=== PATIENT | female | born 1945 | race Caucasian/White ===

== ENCOUNTER 2019-04-08 15:42 | Emergency (ER) | payer MEDICARE ==
--- NOTE | 2019-04-08 16:23 | ER Document Report ---
ED Medical Screen (RME) - General Chief Complaint: Abdominal Pain Stated Complaint: FLANK PAIN ON BOTH SIDES Time Seen by Provider: 04/08/19 16:17 Mode of Arrival: Ambulatory Information source: Patient Notes: 73-year-old female presented to ED for bilateral lower abdominal pain for 10 days to 2 weeks. She states she went to the urgent care today and they told her to come over to the emergency room. She states the pain is been much worse over the last couple days. She states she was having diarrhea but the last couple days is been normal stools she denies any nausea vomiting or fevers. She states she had a total hysterectomy and 1997 and she states her pain at times is a 5 but right now is about a 2 or 3. She does have hyperactive bowel sounds tenderness to bilateral lower abdomen worse on the left. 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 She is at a clinical trial at [facility] and gets treatment every month last treatment was March 23. She states she is being maintained on these clinical trials. Sezary syndrome lymphoma. She states she drinks several times a week a glass of wine and smokes occasionally. I have greeted and performed a rapid initial assessment of this patient. A comprehensive ED assessment and evaluation of the patient, analysis of test results and completion of medical decision making process will be conducted by an additional ED providers. Physical Exam - Vital signs Vitals: Temp Pulse Resp BP Pulse Ox 98.2 F 74 20 152/64 H 99 04/08/19 15:46 04/08/19 15:46 04/08/19 15:46 04/08/19 15:46 04/08/19 15:46 Course - Vital Signs Vital signs: Temp Pulse Resp BP Pulse Ox 98.2 F 74 20 152/64 H 99 04/08/19 15:46 04/08/19 15:46 04/08/19 15:46 04/08/19 15:46 04/08/19 15:46
[2019-04-08 17:33] LABS: ABSOLUTE BASOPHILS # (AUTO) 0.1 10^3/uL (0.0-0.2); ABSOLUTE EOSINOPHILS # (AUTO) 0.3 10^3/uL (0.0-0.6); ABSOLUTE MONOCYTES (AUTO) 1.6 10^3/uL (0.1-1.4); ABSOLUTE NEUT (AUTO) 9.3 10^3/uL (1.7-8.2); BASOPHILS % (AUTO) 0.5 % (0-2); HEMOGLOBIN 13.5 g/dL (12.0-15.5); LYMPHOCYTES % (AUTO) 15.1 % (13-45); MEAN CORPUSCULAR HEMOGLOBIN 32.7 pg (27.0-33.4); MEAN CORPUSCULAR HGB CONC 33.7 g/dL (32.0-36.0); MEAN CORPUSCULAR VOLUME 97 fl (80-97); PLATELET COUNT 267 10^3/uL (150-450); RED BLOOD COUNT 4.12 10^6/uL (3.72-5.28); RED CELL DISTRIBUTION WIDTH 12.9 % (11.5-14.0); SEGMENTED NEUTROPHILS % (AUTO) 70.4 % (42-78); TOTAL CELLS COUNTED % (AUTO) 100 %; WHITE BLOOD COUNT 13.2 10^3/uL (4.0-10.5)
[2019-04-08 17:42] LABS: APPEARANCE,URINE CLEAR; BILIRUBIN,URINE NEGATIVE (NEGATIVE); COLOR,URINE YELLOW; GLUCOSE, URINE NEGATIVE (NEGATIVE); KETONES,URINE NEGATIVE (NEGATIVE); PROTEIN,URINE NEGATIVE (NEGATIVE); URINE SPECIFIC GRAVITY 1.011; UROBILINOGEN,URINE NEGATIVE mg/dL (<2.0)
[2019-04-08 18:13] LABS: ALBUMIN 4.1 g/dL (3.5-5.0); ALKALINE PHOSPHATASE 53 U/L (38-126); ANION GAP 9 (5-19); ASPARTATE AMINO TRANSFERASE 24 U/L (14-36); BILIRUBIN,DIRECT 0.1 mg/dL (0.0-0.4); BILIRUBIN,TOTAL 0.6 mg/dL (0.2-1.3); BLOOD UREA NITROGEN 12 mg/dL (7-20); CALCIUM 9.4 mg/dL (8.4-10.2); CARBON DIOXIDE 25 mmol/L (22-30); CHLORIDE 103 mmol/L (98-107); GLUCOSE 87 mg/dL (75-110); POTASSIUM 4.5 mmol/L (3.6-5.0)
[2019-04-08] MEDS ORDERED: DICYCLOMINE HCL INJ 20 MG/2 ML AMPULE IM ONE (20:31)
--- NOTE | 2019-04-08 20:37 | ER Document Report ---
ED General - General Chief Complaint: Abdominal Pain Stated Complaint: FLANK PAIN ON BOTH SIDES Time Seen by Provider: 04/08/19 16:17 Primary Care Provider: ABI REAGAN [Primary Care Provider] - Follow up as needed Mode of Arrival: Ambulatory TRAVEL OUTSIDE OF THE [place] IN LAST 30 DAYS: No - HPI Notes: Patient is a 73-year-old female presents emergency department for evaluation of intermittent abdominal pain. Pain is been present intermittently for the last 8 to 10 days. She states to believe it is precipitated by food. Pain lasts anywhere from 30 seconds to a few minutes. She has not found anything that makes it better. She denies any associated fevers or chills. No nausea or vomiting. Her appetite is normal, but she states she has not been eating as she fears that it will worsen her pain. She denies any associated urinary symptoms. - Related Data Allergies/Adverse Reactions: erythromycin base Adverse Reaction (Verified 04/08/19 16:20) Home Medications: Losartan, gemfibrozil, Synthroid, Xanax, Lexapro, Pristiq Past Medical History - General Information source: Patient - Social History Smoking Status: Current Some Day Smoker Chew tobacco use (# tins/day): No Frequency of alcohol use: Social Drug Abuse: None Family History: Reviewed & Not Pertinent Patient has suicidal ideation: No Patient has homicidal ideation: No - Past Medical History Cardiac Medical History: Reports: Hx Hypercholesterolemia, Hx Hypertension Endocrine Medical History: Reports: Hx Hypothyroidism Malignancy Medical History: Reports: Hx Lymphoma Review of Systems - Review of Systems Constitutional: No symptoms reported EENT: No symptoms reported Cardiovascular: No symptoms reported Respiratory: No symptoms reported Gastrointestinal: See HPI Genitourinary: No symptoms reported Female Genitourinary: No symptoms reported Musculoskeletal: No symptoms reported Skin: No symptoms reported Neurological/Psychological: No symptoms reported Physical Exam - Vital signs Vitals: Temp Pulse Resp BP Pulse Ox 98.2 F 74 20 152/64 H 99 04/08/19 15:46 04/08/19 15:46 04/08/19 15:46 04/08/19 15:46 04/08/19 15:46 - Notes Notes: Vital signs reviewed, please refer to chart. Head is normocephalic, atraumatic. Pupils equal round, reactive to light. Neck is supple without meningismus. Heart is regular rate and rhythm. Lungs are clear to auscultation bilaterally. Abdomen is soft, moderately tender in the bilateral lower quadrants without rebound or guarding, normoactive bowel sounds throughout. Extremities without cyanosis, clubbing. Posterior calves are nontender. Peripheral pulses are equal. Skin is warm and dry. Patient is awake, alert, neurological exam is nonfocal. Course - Re-evaluation Re-evalutation: 04/08/19 21:47 Patient presents emergency department for evaluation of lower quadrant abdominal pain. She is been having normal bowel movements. She has no fevers or chills. She does have mild leukocytosis. Given the duration of her pain, I was inclined to CT scan this patient. CT scan found what appears to be likely sigmoid div erticulitis. Reexamination of the abdomen revealed tenderness but again it was nonsurgical. Patient was given Cipro and Flagyl. I will send her home with a small amount of Vicodin, as well as prescriptions for Cipro, Flagyl, Bentyl. She is here from out of town. She is told she needs to follow-up with her primary care provider. I also explained her the risk of perforation and progressive infection, told her that symptoms should prompt her to return. Also states she should not drink alcohol while taking the Flagyl. She voiced understanding to this and was comfortable discharge. - Vital Signs Vital signs: Temp Pulse Resp BP Pulse Ox 98.5 F 68 16 141/69 H 96 04/08/19 20:57 04/08/19 20:57 04/08/19 20:57 04/08/19 20:57 04/08/19 20:57 - Laboratory Result Diagrams: 04/08/19 17:24 04/08/19 17:24 Laboratory results interpreted by me: 04/08/19 04/08/19 17:00 17:24 WBC 13.2 H Absolute Neuts (auto) 9.3 H Absolute Monos (auto) 1.6 H Leukocyte Esterase Rfl SMALL H - Diagnostic Test Radiology reviewed: Reports reviewed Radiology results interpreted by me: 04/08/19 21:48 Abdomen/Pelvis CT 04/08/19 20:31 IMPRESSION: Findings most consistent with acute uncomplicated sigmoid diverticulitis Discharge - Discharge Clinical Impression: Sigmoid diverticulitis Condition: Stable Disposition: HOME, SELF-CARE Instructions: Diverticulitis ([facility]), Ciprofloxacin ([facility]), Low Residue Diet ([facility]), Metronidazole ([facility]) Additional Instructions: Take all of the antibiotics as prescribed, starting tomorrow. Use [place] as needed for severe pain, watch for dizziness, drowsiness, constipation with this medication. Take Bentyl as needed for moderate pain. Please avoid alcohol as discussed while taking the Flagyl. Low residue diet, please see attached paperwork for further information. Return to the ED with worsening or new concerning symptoms of any sort, including but not limited to fevers, vomiting, increased pain. Otherwise, follow-up with your primary care provider next week for recheck. Referrals: LOCALMD,NO [Primary Care Provider] - Follow up as needed
--- NOTE | 2019-04-08 21:23 | RADIOLOGY REPORT (SQ) ---
EXAM DESCRIPTION: CT ABDOMEN PELVIS WITHOUT IV CONTRAST COMPLETED DATE/TME: 04/08/2019 20:31 CLINICAL HISTORY: 73 years Female Lower abdominal pain and tenderness COMPARISON: None. TECHNIQUE: Contiguous axial images obtained through the abdomen and pelvis without IV contrast. Reformatted images obtained. This exam was performed according to our department optimization program which includes automated exposure control, adjustment of the mA and/or kv according to patient size and/or use of iterative reconstruction technique. FINDINGS: The lung bases are clear. The liver appears unremarkable. The spleen and pancreas appear unremarkable. No adrenal masses. The kidneys appear unremarkable. No hydronephrosis or definite ureteral calculi. The gallbladder is visualized. No aneurysmal dilatation of the aorta. No bowel obstruction. Diverticulosis. There is inflammation involving the sigmoid colon consistent with acute uncomplicated diverticulitis. There is associated wall thickening. No abscess. No free pelvic fluid. IMPRESSION: Findings most consistent with acute uncomplicated sigmoid diverticulitis
[2019-04-08] MEDS ORDERED: HYDROCODONE/ACETAMINOPHEN 5-325 MG (6 TAB/ER DISP) PO PRN (21:46)
[2019-04-08] MEDS ORDERED: METRONIDAZOLE 500 MG TABLET PO ONE (21:46)
[2019-04-08] MEDS ORDERED: CIPROFLOXACIN HCL 500 MG TABLET PO ONE (21:46)
[2019-04-08 22:07] VITALS: BP 161/81
== END 2019-04-08 22:25 | disposition home or self-care (01) ==
LOC: ER 15:42
DX: K57.32 Diverticulitis of large intestine without perforation or abscess without bleeding (principal); R10.30 Lower abdominal pain, unspecified; R10.813 Right lower quadrant abdominal tenderness; R10.814 Left lower quadrant abdominal tenderness; D72.829 Elevated white blood cell count, unspecified; F17.200 Nicotine dependence, unspecified, uncomplicated; I10 Essential (primary) hypertension; E78.00 Pure hypercholesterolemia, unspecified; E03.9 Hypothyroidism, unspecified; Z79.899 Other long term (current) drug therapy; Z85.72 Personal history of non-Hodgkin lymphomas
CPT/HCPCS: 99284; 96372; 36415; 87040; 87086; 83690; 85025; 80053; 81001; 74176; A9270 ×3; J0500